=== PATIENT | female | born 1930 | race Caucasian/White ===

== ENCOUNTER 2016-04-30 18:03 | Inpatient (IN) | payer MEDICARE, BC ==
--- NOTE | 2016-04-30 18:29 | EDPRACDOC ---
- General Information Chief Complaint: Generalized Weakness Stated Complaint: STROKE Time Seen by Provider: 04/30/16 18:21 Home Medications: Home Medications Aspirin [Chewable Aspirin] 81 mg PO DAILY 09/15/12 Calcium Carbonate [Caltrate 600] 600 mg PO DAILY 09/15/12 Fish Oil/Dha/Epa [Fish Oil 1,200 mg Fish Oil] 1 cap PO DAILY 09/15/12 Hydrochlorothiazide 25 mg PO QAM 09/15/12 Losartan Potassium 100 mg PO DAILY 09/15/12 Allergies/Adverse Reactions: Allergies Allergy/AdvReac Type Severity Reaction Status Date / Time No Known Allergies Allergy Verified 09/15/12 14:58 - History of Present Illness Exact Onset of Symptoms: Known Date Symptoms Started: 04/30/16 Time Symptoms Started: 09:00 Symptoms Started: Reports: Suddenly Symptoms: Reports: Difficulty walking, Slurred speech Symptoms Description: Constant Symptom Severity: Reports: Does not affect activitiy Weakness: Right: Face Relevant History of: Denies: Anemia, CVA, DM, Electrolyte disorder, GI Bleed, [place] , TIA Associated signs and symptoms:: Denies: GI Bleed, Chest pain, Diarrhea, Fever, Headache, Nausea, Palpitations, Vomiting HPI: PT BROUGHT TO ED VIA EMS, EMS REPORTS STATED TO THEM THAT HE NOTICED PT BEING "OFF BALANCE" TODAY ABOUT 0900, STATES HER SPEECH HAS BEEN SLURRED AND THE RIGHT SIDE OF HER FACE WAS "DROOPING". PT DENIES COMPLAINTS, STATES SHE FEELS FINE, STATES SHE IS NOT HAVING ANY SPEECH DIFFICULTIES, DENIES FEELING WEAK ON RIGHT SIDE, STATES HER BALANCE HAS BEEN OFF BECAUSE SHE HAD A CORN REMOVED FROM HER TOE. ED Past Medical History - History Reviewed Yes Nurses notes reviewed and agree except as marked - Patient Medical History Cardiac History: Reports: Hypertension Musculoskeletal History: Reports: Arthritis Systemic History: Denies: Cancer Surgical History: Reports: Hysterectomy - Social Medical History Smoking Status: Never smoker ETOH: None Substance Abuse: None Lives With: Spouse Lives In: Home EDM Review of Systems - Review of Systems Constitutional: negative: Chills, Fever, Fatigue, Weakness Eyes: negative: Blurred Vision, Double Vision Ears: negative: Drainage Throat: negative: Pain Nose: negative: Congestion, Discharge Respiratory: negative: Cough, Shortness of Breath, Wheezing Cardiovascular: negative: Chest Pain, Palpitations Gastrointestinal: negative: Diarrhea, Nausea, Pain, Vomiting Genitourinary: negative: Dysuria, Frequency Neurological: Gait Difficulty, Speech Difficulty. negative: Dizziness, Headache , Numbness Musculoskeletal: No Symptoms Reported Integumentary: No Symptoms Reported - Physical Exam Constitutional: Alert (Awake), No apparent distress Oriented to: Time, Person, Place Last recorded Vital Signs: Oxygen Pulse Oxygen Saturation O2 Device Oxygen Flow Rate Fraction of Inspired Oxygen ( FIO2) - HEENT Head: Normal ( normocephalic) Eye Exam: Normal (PERRL, EOMI, Sclera white) Oropharynx: Normal (Pharynx:Moist without exudate,Gums-no swelling) Tympanic Membrane: Normal ENT EAC: Normal TMJ: Normal Nose: No Symptoms Reported (septum midline) Neck: Normal (FROM, trachea at midline) - Respiratory/Cardiovascular Respiratory: Normal - CTA (BBS clear to auscultation without adventitious sounds ) Cardiovascular: Normal (RRR without murmur, gallop or rub) - GI Auscultation: Normal (NABS) Palpation: Normal (Soft,No rebound or guarding, non distended) Tenderness: Non tender Casanova's Sign: Negative - Musculoskeletal Back: Normal (Non-Tender) Extremities: Normal (Normal tone, Pulses 2+ No cyanosis or edema, FROM) - Integumentary Skin: Normal, Warm, Dry Lymphatics: Normal (no adenopathy) - Neurologic Memory Impaired: Normal Motor Function: Normal (Normal tone, Pulses 2+ No cyanosis or edema, FROM) Cranial Nerve: Normal (CN II-X11 intact sensation, strength 5/5) Cerebellar: Normal Mood Description: Normal Perception: Normal NIH Stroke Scale Initial Evaluation Level of Consciousness: Alert LOC- Question: Answers Both Correctly LOC Commands: Both Task Correctly Best Gaze: Normal Visual: No Visual Loss Facial Palsy: Normal Movement Motor Arm LEFT: No Drift Motor Arm RIGHT: No Drift Motor Leg LEFT: No Drift Motor Leg RIGHT: No Drift Limb Ataxia: Absent Sensory: Normal Best Language: No Aphasia Dysarthria: Mild to Moderate Extinction and Inattention: No Abnormality (Neglect) Score: 1out of42 - Differential Diagnosis CVA, Mass lesion, SAH, TIA - Action Has patient received an Antithrombotic in the last 24hrs?: No Was an Antithrombotic given in the ED?: No Antithrombotic Contraindicated: Other *free text (SYMPTOMS MORE THAN 4 HOURS OLD ) Is patient a candidate for lytic therapy?: No Patient received TPA within 30 min of arrival?: No Reason IV Thrombolytics Contraindicated: Onset Undetermined - Re-evaluation Re-evaluation 1 Re-evaluation Time: 20:07 (NO CHANGE) - Results 04/30/16 18:55 04/30/16 18:55 04/30/16 20:02 Laboratory Results - last 24 hr 04/30/16 04/30/16 04/30/16 18:55 18:55 18:55 WBC 8.4 RBC 4.23 Hgb 12.6 Hct 37.1 MCV 88 MCH 29.7 MCHC 33.9 RDW 13.8 Plt Count 161 MPV 10.7 H Neut % (Auto) 66.9 Lymph % (Auto) 18.3 [place] % (Auto) 10.4 H Eos % (Auto) 2.6 Baso % (Auto) 1.8 Absolute Neuts (auto) 5.54 Absolute Lymphs (auto) 1.51 PT 10.6 INR 1.0 APTT 26.4 Sodium 136 L Potassium 3.2 L Chloride 96 L Carbon Dioxide 33 Anion Gap 10 BUN 17 Creatinine 0.90 Estimated GFR (MDRD) 60 Glucose 162 H Calculated Osmolality 268 L Calcium 9.2 Corrected Calcium 9.5 Total Bilirubin 0.7 AST 14 ALT 31 Alkaline Phosphatase 73 Troponin I < 0.01 Total Protein 6.6 Albumin 3.7 - EKG EKG #1 EKG Time: 18:27 -: Yes EKG interpreted by me Rate: bpm: 74 [place]: LAD Rhythm: NSR Block: None Hypertrophy: None ST: Nonsp Comments: NO OLD EKG FOR COMPARISON - Diagnostic Imaging CT HEAD Image interpreted by: Radiologist CT HEAD WITHOUT CONTRAST TECHNIQUE: Contiguous axial images were obtained from the base of the skull through the vertex without intravenous contrast. COMPARISON: CT of the head performed 09/28/2014 FINDINGS: There is no evidence of acute infarction, mass lesion, or intra- or extra-axial hemorrhage on CT. There is prominence of the supratentorial ventricles, out of proportion to the prominence of the sulci, though this is similar in appearance to the prior study and may simply reflect more prominent central volume loss. Would correlate for any evidence of chronic communicating hydrocephalus. Mild periventricular white matter change likely reflects small vessel ischemic microangiopathy. Small chronic lacunar infarcts are suggested within the basal ganglia. The brainstem and fourth ventricle are within normal limits. The cerebral hemispheres demonstrate grossly normal bates-white differentiation. No mass effect or midline shift is seen. There is no evidence of fracture; visualized osseous structures are unremarkable in appearance. The visualized portions of the orbits are within normal limits. A small mucus retention cyst or polyp is noted within the right maxillary sinus. The remaining paranasal sinuses and mastoid air cells are well-aerated. No significant soft tissue abnormalities are seen. IMPRESSION: 1. No acute intracranial pathology seen on CT. 2. Prominence of the supratentorial ventricles may simply reflect moderate cortical volume loss, as it appears stable from 2015, though would correlate for any evidence of chronic communicating hydrocephalus. 3. Mild small vessel ischemic microangiopathy. 4. Small chronic lacunar infarcts suggested within the basal ganglia. 5. Small mucus retention cyst or polyp within the right maxillary sinus. - Additional Information DISCUSSED WITH , HE STATES THAT HE NOTICED PT "DRAGGING" HER RIGHT FOOT THIS MORNING, PT HAS SUMA CONFUSED THROUGHOUT THE DAY, STATES THAT WHEN SHE COOKED SUPPER SHE GOT CHEESE ALL OVER THE COUNTER AND DID NOT COOK THE POTATOES PROPERLY WHICH IS VERY UNUSUAL FOR HER. STATES THAT PT'S SPEECH IS NOT CLEAR USUAL. DISCUSSED WITH DR PEREIRA, HE WILL DISCUSS WITH THE HOSPITALIST - Departure Final Diagnosis: Right sided weakness, Dysarthria Hypertension Qualifiers: Hypertension type: essential hypertension Qualified Code(s): I10 - Essential ( primary) hypertension Education/Counseling Given To: Patient, Family Member Education/Counseling Given Regarding: Diagnosis, Treatment, Prognosis, Follow Up Referrals: Mark Calderon MD [Primary Care Provider] - One Week
[2016-04-30] MEDS ORDERED: SODIUM CHLORIDE 0.9% 10 ML FLUSH FLUSH PRN (18:30)
[2016-04-30] MEDS ORDERED: ENALAPRILAT 1.25 MG/ML VIAL IV ONE (18:52)
--- NOTE | 2016-04-30 18:58 | DIRPT ---
CLINICAL DATA: Weakness, slurred speech and facial droop. EXAM: PORTABLE CHEST 1 VIEW COMPARISON: None. FINDINGS: Lung volumes are low bilaterally. There is focal elevation/ eventration of the left hemidiaphragm. The heart size is normal. No edema, pleural fluid or focal airspace disease identified. IMPRESSION: Low lung volumes with elevated left hemidiaphragm. Electronically Signed By: Mc Holder M.D. On: 04/30/2016 18:55
[2016-04-30 19:19] LABS: AUTOMATED BASOPHIL 1.8 % (0-2); AUTOMATED EOSINOPHIL 2.6 % (0-5); AUTOMATED LYMPH 18.3 % (17-44); AUTOMATED MONOCYTE 10.4 % (3-10); AUTOMATED NEUTROPHIL 66.9 % (45-76); MPV 10.7 fL (7.4-10.4)
--- NOTE | 2016-04-30 19:25 | DIRPT ---
CLINICAL DATA: Acute onset of altered mental status and slurred speech. Dragging right leg. Initial encounter. EXAM: CT HEAD WITHOUT CONTRAST TECHNIQUE: Contiguous axial images were obtained from the base of the skull through the vertex without intravenous contrast. COMPARISON: CT of the head performed 09/28/2014 FINDINGS: There is no evidence of acute infarction, mass lesion, or intra- or extra-axial hemorrhage on CT. There is prominence of the supratentorial ventricles, out of proportion to the prominence of the sulci, though this is similar in appearance to the prior study and may simply reflect more prominent central volume loss. Would correlate for any evidence of chronic communicating hydrocephalus. Mild periventricular white matter change likely reflects small vessel ischemic microangiopathy. Small chronic lacunar infarcts are suggested within the basal ganglia. The brainstem and fourth ventricle are within normal limits. The cerebral hemispheres demonstrate grossly normal bates-white differentiation. No mass effect or midline shift is seen. There is no evidence of fracture; visualized osseous structures are unremarkable in appearance. The visualized portions of the orbits are within normal limits. A small mucus retention cyst or polyp is noted within the right maxillary sinus. The remaining paranasal sinuses and mastoid air cells are well-aerated. No significant soft tissue abnormalities are seen. IMPRESSION: 1. No acute intracranial pathology seen on CT. 2. Prominence of the supratentorial ventricles may simply reflect moderate cortical volume loss, as it appears stable from 2014, though would correlate for any evidence of chronic communicating hydrocephalus. 3. Mild small vessel ischemic microangiopathy. 4. Small chronic lacunar infarcts suggested within the basal ganglia. 5. Small mucus retention cyst or polyp within the right maxillary sinus. Electronically Signed By: Musa Yanes M.D. On: 04/30/2016 19:22
[2016-04-30 19:28] LABS: BLOOD UREA NITROGEN 17 MG/DL (7-17); CALC CORRECTED 9.5 MG/DL (8.4-10.2); CALCIUM 9.2 MG/DL (8.4-10.2); CALCULATED OSMOLALITY 268 MOs/Kg (270-290); CHLORIDE 96 mEq/L (98-107); GLUCOSE 162 MG/DL (70-99); SODIUM LEVEL 136 mEq/L (137-146); TOTAL PROTEIN 6.6 G/DL (6.3-8.2)
[2016-04-30 19:35] LABS: PARTIAL THROMB. TIME 26.4 SEC (22-35)
[2016-04-30] MEDS ORDERED: ASPIRIN 300 MG SUPP PR ONE (20:14)
[2016-04-30] MEDS ORDERED: TEMAZEPAM 15 MG CAP PO PRN (20:49)
[2016-04-30] MEDS ORDERED: ONDANSETRON HCL 4 MG/2 ML VIAL IV PRN (20:49)
[2016-04-30] MEDS ORDERED: ACETAMINOPHEN 325 MG/TAB TABLET PO PRN (20:49)
[2016-04-30] MEDS ORDERED: SIMETHICONE 80 MG TAB PO PRN (20:49)
[2016-04-30] MEDS ORDERED: METOCLOPRAMIDE 10 MG/2 ML VIAL IV PRN (20:49)
[2016-04-30] MEDS ORDERED: DOCUSATE-SENNA CONCENTRATE TAB PO PRN (20:49)
[2016-04-30] MEDS ORDERED: ACETAMINOPHEN 650 MG SUPP PR PRN (20:49)
[2016-04-30] MEDS ORDERED: BENZONATATE 100 MG PERLES PO PRN (20:49)
[2016-04-30] MEDS ORDERED: METOPROLOL TARTRATE 50 MG TAB PO ONE (20:53)
[2016-04-30] MEDS ORDERED: METOPROLOL TARTRATE 50 MG TAB PO SCH (21:00)
[2016-04-30 21:13] LABS: LEUKOCYTES/URINE TRACE (NEGATIVE); NITRITE/URINE NEG (NEGATIVE); URINE OCCULT BLOOD NEG (NEG/TRACE)
[2016-04-30 21:19] LABS: RBC/URINE 0-2 (0-5)
[2016-04-30] MEDS: LABETALOL 20 MG/4 ML SYRINGE IV PRN (22:04)
[2016-04-30] MEDS ORDERED: Vaccine Screening Complete SCH (23:00)
[2016-04-30] MEDS ORDERED: ENOXAPARIN 40 MG/0.4 ML PFS SQ SCH (23:00)
--- NOTE | 2016-04-30 23:51 | HISTPHYS ---
- Chief Complaint SLURRED SPEECH - History of Present Illness Erika Yang is an 85 year old woman who lives at home with her spouse. Her called their daughters because he noted that she was mumbling and not speaking clearly, and when she tried to make dinner, she was grating some cheese and scattering it all over the kitchen. The patient did not notice anything was different. Even after the ambulance arrived, she did not know why they wanted her to come to the hospital. The patient's two daughters noted that her speech was very garbled, one side of her face was drooping and she was drooling out of the corner of her mouth. Her right arm was less coordinated than usual. these changes persisted upon arrival to the ED but began to resolve some time after her arrival. She had no apparent stroke on her uncontrasted CT of the head, and because her symptoms seem to have started at least 6 hours prior to arrival, no TPA was given. Her blood pressure on arrival was very high: 229/101. She has been treated with several medications since admission in attempts to bring it down. Her family says her blood pressure is only high when she goes to the doctor. She checks it at home and it is normal. Her report of normal was 165/35. "Or something like that." The patient is able to follow all commands and has no loss of strength at this time. Her only neurologic deficit at present is some nasolabial flattening on the right side of her face and some dysarthria/word-salad. - Medical History Cardiac History: Reports: Hypertension, Hypercholesterolemia Respiratory History: Reports: COPD GI/ History: Reports: Urinary Tract Infection (bladder prolapse) Musculoskeletal History: Reports: Arthritis Neurological History: Reports: Cerebrovascular Accident Psychological History: Denies: Depression - Surgical History Reports: Hysterectomy, Other (cataracts) - Medictions/Allergies Allergies No Known Allergies Allergy (Verified 09/15/12 14:58) Current Medication List: Reviewed Home Medications Aspirin [Chewable Aspirin] 81 mg PO DAILY 09/15/12 Calcium Carbonate [Caltrate 600] 600 mg PO DAILY 09/15/12 Fish Oil/Dha/Epa [Fish Oil 1,200 mg Fish Oil] 1 cap PO DAILY 09/15/12 Hydrochlorothiazide 25 mg PO QAM 09/15/12 Losartan Potassium 100 mg PO DAILY 09/15/12 - Family History Reports: Hypertension (Mom, Bro), Diabetes (Bro), Cancer (Bro-lymphoma), Stroke (puncle). Denies: Cardiac Disorders, Respiratory Disorders - Social History Travel Outside of [place] in the Last 3 Months?: No Lives: with Spouse Smoking Status: Never smoker Social History: Denies: Alcohol Use - Review of Systems Constitutional: No Symptoms Reported Eyes: Cataracts Ears: Hearing Loss Nose: No Symptoms Reported Mouth: Drooling (R- side) Throat/Neck: No Symptoms Reported Respiratory: Cough. negative: Shortness of Breath, Asthma Cardiovascular: negative: Chest Pain, Edema, Orthopnea, Palpitations Gastrointestinal: No Symptoms Reported. negative: Nausea, Vomiting, Abdominal Pain, Constipation, Heartburn Genitourinary: No Symptoms Reported, Postmenopause. negative: Dysuria, Frequency, Nocturia, Urgency to urinate Neurological: Speech Difficulty, Weakness, Memory Changes. negative: Dizziness , Gait Difficulty, Headache, Numbness Musculoskeletal:: No Symptoms Reported Integumentary: No Symptoms Reported Allergic/Immunologic: No Symptoms Reported Hematologic: No Symptoms Reported Endocrine: No Symptoms Reported. negative: Heat Intolerance, Cold Intolerance, Polyuria, Osteoporosis, Diabetes, Hypothyroidism Psychiatric: No Symptoms Reported. negative: Anxiety, Depression, Insomnia - Physical Exam Vital Signs: Initial Vitals Temperature 98.7 F 04/30/16 18:03 Pulse Rate 82 04/30/16 18:03 Respiratory Rate 16 04/30/16 18:03 Blood Pressure 229/101 H 04/30/16 18:03 Pulse Oxygen Saturation 97 04/30/16 18:03 Constitutional: No apparent distress, Alert, Confused Oriented to: Person, Place - HEENT Head: Other (mild Right sided nasolabial flattening) Eye: Normal (PERRL: EOMI) Oropharynx: Drooling ( Right sided nasolabial flattening). negative: Normal, Exudate, Red, Tonsillar Hypertrophy Tympanic Membrane: Normal ENT EAC: Cerumen Nose: No Symptoms Reported. negative: Bleeding, Congestion, Discharge, Deformity Respiratory: Normal - CTA. negative: Tachypnea Cardiovascular: Normal (regular rhythm and rate, no murmur) - GI Auscultation: Normal Palpation: Normal Tenderness: Non tender Casanova's Sign: Negative Rectal Exam: Deferred - Musculoskeletal Back: Normal Extremities: Normal Spine: non-tender, normal alignment, normal inspection - Integumentary Skin: Warm, Dry. negative: Rash Lymphatics: Normal - Neurologic Memory Impaired: Short-term Motor Function: Normal Cranial Nerve: 2 (EOMI), 3 (EOMI), 4 (EOMI), 5 (masseter muscle strong bilaterally,), 6 (EOMI), 7 (mild nasolabial flattening on right), 8 (no nystagmus), 9 (significant dysarthria), 10 (significant dysarthria), 11 (head turn/shoulder shrug - intact), 12 (significant dysarthria) Cerebellar: Normal Mood Description: Appropriate, Calm Thought: Coherent Perception: Normal - Focused CV Perfusion Exam Vital Signs: Last Vital Signs Temp 98.3 F 04/30/16 22:25 Pulse 67 04/30/16 23:20 Resp 18 04/30/16 22:25 BP 193/84 H 04/30/16 23:20 Pulse Ox 95 04/30/16 22:25 - Lab Results Laboratory Tests 04/30/16 04/30/16 04/30/16 18:55 18:55 18:55 WBC 8.4 Hgb 12.6 Hct 37.1 Plt Count 161 Neut % (Auto) 66.9 Lymph % (Auto) 18.3 [place] % (Auto) 10.4 H Eos % (Auto) 2.6 Baso % (Auto) 1.8 Absolute Neuts (auto) 5.54 Absolute Lymphs (auto) 1.51 PT 10.6 INR 1.0 APTT 26.4 Sodium 136 L Potassium 3.2 L Chloride 96 L Carbon Dioxide 33 Anion Gap 10 BUN 17 Creatinine 0.90 Estimated GFR (MDRD) 60 Glucose 162 H Calculated Osmolality 268 L Calcium 9.2 Corrected Calcium 9.5 Total Bilirubin 0.7 AST 14 ALT 31 Alkaline Phosphatase 73 Troponin I < 0.01 Total Protein 6.6 Albumin 3.7 TSH Urine Color Urine Clarity Urine pH Ur Specific [place] Urine Protein Urine Glucose (UA) Urine Ketones Urine Nitrite Urine RBC Urine WBC Urine Bacteria 04/30/16 04/30/16 04/30/16 18:55 20:47 21:00 WBC Hgb Hct Plt Count Neut % (Auto) Lymph % (Auto) [place] % (Auto) Eos % (Auto) Baso % (Auto) Absolute Neuts (auto) Absolute Lymphs (auto) PT INR APTT Sodium Potassium Chloride Carbon Dioxide Anion Gap BUN Creatinine Estimated GFR (MDRD) Glucose Calculated Osmolality Calcium Corrected Calcium Total Bilirubin AST ALT Alkaline Phosphatase Troponin I < 0.01 Total Protein Albumin TSH 1.14 Urine Color Yellow Urine Clarity Hazy Urine pH 5.0 Ur Specific [place] 1.010 Urine Protein Neg Urine Glucose (UA) Neg Urine Ketones Neg Urine Nitrite Neg Urine RBC 0-2 Urine WBC 10-20 H Urine Bacteria Few 05/01/16 00:45 WBC Hgb Hct Plt Count Neut % (Auto) Lymph % (Auto) [place] % (Auto) Eos % (Auto) Baso % (Auto) Absolute Neuts (auto) Absolute Lymphs (auto) PT INR APTT Sodium Potassium Chloride Carbon Dioxide Anion Gap BUN Creatinine Estimated GFR (MDRD) Glucose Calculated Osmolality Calcium Corrected Calcium Total Bilirubin AST ALT Alkaline Phosphatase Troponin I < 0.01 Total Protein Albumin TSH Urine Color Urine Clarity Urine pH Ur Specific [place] Urine Protein Urine Glucose (UA) Urine Ketones Urine Nitrite Urine RBC Urine WBC Urine Bacteria - Diagnostic Findings CT Head: IMPRESSION: 1. No acute intracranial pathology seen on CT. 2. Prominence of the supratentorial ventricles may simply reflect moderate cortical volume loss, as it appears stable from 2014, though would correlate for any evidence of chronic communicating hydrocephalus. 3. Mild small vessel ischemic microangiopathy. 4. Small chronic lacunar infarcts suggested within the basal ganglia. 5. Small mucus retention cyst or polyp within the right maxillary sinus. Electronically Signed By: Musa Yanes M.D. On: 04/30/2016 19:22 CXR: IMPRESSION: Low lung volumes with elevated left hemidiaphragm. Electronically Signed By: Mc Holder M.D. On: 04/30/2016 18:55 - Assessment (1) Acute CVA (cerebrovascular accident) I63.9 - CEREBRAL INFARCTION, UNSPECIFIED Acute Present on Admission: Yes Admit, begin stroke protocol. Patient's BP is extremely high. We do allow for permissive hypertension the first 48 hours, but with a goal to keep the SBP no more than 180. PO and IV medications have been written to provide adequate control. She will need to be on aspirin and a statin. (2) Hypertensive urgency, malignant I16.0 - HYPERTENSIVE URGENCY Acute Present on Admission: Yes Patient's BP is extremely high. We do allow for permissive hypertension the first 48 hours, but with a goal to keep the SBP no more than 180. PO and IV medications have been written to provide adequate control. (3) Right sided weakness M62.81 - MUSCLE WEAKNESS (GENERALIZED) Acute Present on Admission: Yes Consult PT/OT and anticipate rehabilitation needs. (4) Dysarthria R47.1 - DYSARTHRIA AND ANARTHRIA Acute Present on Admission: Yes Speech therapy to be consulted for speech and swallowing assessments. Case Care Discussed with: Patient, Family, Nursing Staff Total Time: 65 min Critical Care: Yes [place] Time (>50% in counseling/coordination): Yes Code: 291
[2016-05-01] MEDS ORDERED: HEPARIN 5000 UNITS/ML VIAL IV ONE (05:30)
[2016-05-01 05:35] LABS: LDL (calc.) 111.8 MG/DL (<100); VLDL (calc.) 14.2 MG/DL (5-40)
[2016-05-01] MEDS: HEPARIN 500 ML IV SCH ×2 (05:44→19:04)
--- NOTE | 2016-05-01 08:03 | DIRPT ---
CLINICAL DATA: Altered mental status. Slurred speech. Left leg weakness. EXAM: BILATERAL CAROTID DUPLEX ULTRASOUND TECHNIQUE: Tavares scale imaging, color Doppler and duplex ultrasound were performed of bilateral carotid and vertebral arteries in the neck. COMPARISON: None. FINDINGS: Criteria: Quantification of carotid stenosis is based on velocity parameters that correlate the residual internal carotid diameter with NASCET-based stenosis levels, using the diameter of the distal internal carotid lumen as the denominator for stenosis measurement. The following velocity measurements were obtained: RIGHT ICA: 110 cm/sec CCA: 63 cm/sec SYSTOLIC ICA/CCA RATIO: 1.8 DIASTOLIC ICA/CCA RATIO: 1.7 ECA: 100 cm/sec LEFT ICA: Occluded cm/sec CCA: 64 cm/sec SYSTOLIC ICA/CCA RATIO: Not applicable DIASTOLIC ICA/CCA RATIO: Not applicable ECA: 109 cm/sec RIGHT CAROTID ARTERY: Mild calcified plaque in the right bulb with some intimal thickening. Low resistance internal carotid Doppler pattern. RIGHT VERTEBRAL ARTERY: Antegrade. Normal Doppler pattern. LEFT CAROTID ARTERY: Extensive calcified plaque in the bulb. The internal carotid artery is occluded by Doppler imaging above the bulb. LEFT VERTEBRAL ARTERY: Antegrade. Low resistance Doppler pattern. 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 Less than 50% stenosis in the right internal carotid artery. Electronically Signed By: Harjit Johnson M.D. On: 05/01/2016 08:00
[2016-05-01] MEDS ORDERED: METOCLOPRAMIDE 10 MG/2 ML VIAL IV PRN (08:55)
[2016-05-01] MEDS ORDERED: CALCIUM CARBONATE 600 MG PO SCH (09:00)
[2016-05-01] MEDS ORDERED: EPA PO SCH (09:00)
[2016-05-01] MEDS ORDERED: Non-Formulary Medication ITEM (Losartan Potassium [Losartan Potassium] 100 MG) PO SCH (09:00)
[2016-05-01] MEDS ORDERED: DHA PO SCH (09:00)
[2016-05-01] MEDS ORDERED: FISH OIL PO SCH (09:00)
[2016-05-01] MEDS ORDERED: Medication Hold Instructions SCH ×2 (10:00→11:00)
--- NOTE | 2016-05-01 11:15 | DIRPT ---
CLINICAL DATA: Acute right facial droop and slurred speech. Altered mental status for 1 day. Abnormal carotid Doppler study. EXAM: MRI HEAD WITHOUT CONTRAST MRA NECK WITHOUT AND WITH CONTRAST TECHNIQUE: Multiplanar, multiecho pulse sequences of the brain and surrounding structures were obtained without and with intravenous contrast. Angiographic images of the neck were obtained using MRA technique with and without intravenous contrast. Carotid stenosis measurements (when applicable) are obtained utilizing NASCET criteria, using the distal internal carotid diameter as the denominator. CONTRAST: 12 mL MultiHance COMPARISON: CT head without contrast 04/30/2016. Carotid Doppler ultrasound 04/30/2016. FINDINGS: MRI HEAD FINDINGS Multiple foci of restricted diffusion are present within the left MCA territory. These are evident throughout the centrum semi ovale and anterior left frontal lobe. There is a focal punctate infarct in the left caudate head and another an the left insular cortex. T2 changes are associated with the areas of acute/ subacute infarction. A remote white matter infarct is present in the right centrum semiovale without hemorrhage. Multiple remote lacunar infarcts and extensive periventricular and subcortical white matter changes are present bilaterally. White matter changes extend into the brainstem. There multiple remote lacunar infarcts of the cerebellum. Areas of focal susceptibility are noted in the inferior right cerebellum and adjacent to the fourth ventricle on the right. Moderate generalized atrophy is present. The left internal carotid artery is occluded at the skullbase. It is reconstituted at the level of the left ophthalmic artery. The left vertebral artery is also occluded. The basilar artery is patent. The right internal carotid artery is patent. Bilateral lens replacements are present. The globes and orbits are otherwise intact. A polyp or mucous retention cyst is noted anteriorly in the right maxillary sinus. The remaining paranasal sinuses are clear. The postcontrast images demonstrate no pathologic enhancement. 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 There is antegrade flow in the vertebral arteries bilaterally. The postcontrast images demonstrate a 3 vessel arch configuration. Both vertebral arteries originate from subclavian arteries. Moderate stenosis is present in the proximal left vertebral artery measuring 50- 70% relative to the more distal vessel. There is mild irregularity throughout the left vertebral artery without a second significant stenosis in the neck. There is a moderate stenosis of the left vertebral artery just be on the PICA origin and occlusion proximal to the vertebrobasilar junction. Mild narrowing of less than 50% is present at the proximal dominant right vertebral artery without other significant stenosis. The right common carotid artery is within normal limits. Atherosclerotic changes are present within the proximal right internal carotid artery and just proximal to skullbase without a significant stenosis. The left common carotid artery is within normal limits. There is a 50% stenosis of the proximal left external carotid artery at the bifurcation. The left internal carotid artery is occluded. IMPRESSION: 1. Multiple acute/subacute infarctions within the left MCA territory. These are mostly scattered white matter infarcts with minimal cortical involvement. 2. Remote right-sided white matter infarcts within the right centrum semiovale. 3. Moderate periventricular and subcortical white matter change bilaterally extends into the brainstem. 4. Remote lacunar infarcts of the basal ganglia and cerebellum bilaterally. 5. The left internal carotid artery is occluded at the bifurcation. 6. Atherosclerotic changes of the proximal left external carotid artery and at the right carotid bifurcation without other focal stenoses. 7. Moderate stenosis of the proximal left vertebral artery. 8. Moderate stenosis of the left vertebral artery just beyond the PICA with occlusion of the distal left vertebral artery just proximal to the vertebrobasilar junction. Electronically Signed By: Amandeep Magaña M.D. On: 05/01/2016 11:12
[2016-05-01] MEDS: ASPIRIN (CHEWABLE) 81 MG TAB PO SCH (11:35)
[2016-05-01] MEDS: CALCIUM CARBONATE 500 MG TAB PO SCH (11:38)
[2016-05-01] MEDS: LOSARTAN POTASSIUM 50 MG TAB PO SCH (11:39)
[2016-05-01] MEDS: METOPROLOL TARTRATE 100 MG TAB PO SCH ×2 (11:41→22:37)
[2016-05-01] MEDS: OMEGA-3-ACID ETHYL ESTERS 1000 MG CAP PO SCH (11:41)
--- NOTE | 2016-05-01 12:55 | GENMEDPROG ---
Chief Complaint: Speech is slightly better today. Still with difficulties with word finding and word salad at times. Denies significant right-sided weakness. 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 left internal carotid artery Notes Reviewed: Yes Events from last night noted and discussed with Clinical Staff Current Medication List: Reviewed Currently: Denies: Cough, Wheezing, ROMO, SOB, Sputum, Constipation, Diarrhea, Nausea and Vomiting, Abdominal Pain - Physical Examination Vital Signs and I&O: Last Vital Signs Temp 97.7 F 05/01/16 11:50 Pulse 68 05/01/16 12:00 Resp 16 05/01/16 11:50 BP 160/58 L 05/01/16 11:50 Pulse Ox 95 05/01/16 11:50 Oxygen Pulse Oxygen Saturation 95 O2 Device Room Air Oxygen Flow Rate Fraction of Inspired Oxygen ( FIO2) Intake & Output 04/28/16 04/29/16 04/30/16 05/01/16 23:59 23:59 23:59 23:59 Intake Total 205 Output Total 250 Balance -45 Patient's weight 59.874 kg 59.738 kg General: Alert, Oriented x3, Cooperative, No acute distress, Well appearing, Well nourished HEENT: PERRLA, EOMI, Anicteric Sclera. negative: Normal, Other (Right-sided facial droop appeared speech thick but intelligible) Neck: Non-tender, Full range of motion, Normal Trachea alignment, Normal inspection. negative: JVD Lymphatics: Normal Respiratory: Normal - CTA. negative: Tachypnea Cardiovascular: Regular rate and rhythm, No Gallops,Rubs/Murmurs GI: Normal bowel sounds, Soft, Non tender, No hepatospenomegaly Extremities/Musculoskeletal: Normal pulses. negative: Tenderness, Swelling Skin: Warm,Dry and Intact, No rashes, No breakdown, No significant lesion Neurological: Strength at 5/5 X4 ext, Normal tone, Cranial nerves 3-12 NL. negative: Normal speech (Speech thick but mostly intelligible. Some difficulties with word finding and word salad at times but overall improved) Psych/Mental Status: Appropriate, Normal Affect, Cooperative Lab/DI/Studies Reviewed: Laboratory Results - last 24 hr 04/30/16 04/30/16 04/30/16 18:55 18:55 18:55 WBC 8.4 RBC 4.23 Hgb 12.6 Hct 37.1 MCV 88 MCH 29.7 MCHC 33.9 RDW 13.8 Plt Count 161 MPV 10.7 H Neut % (Auto) 66.9 Lymph % (Auto) 18.3 [place] % (Auto) 10.4 H Eos % (Auto) 2.6 Baso % (Auto) 1.8 Absolute Neuts (auto) 5.54 Absolute Lymphs (auto) 1.51 ESR PT 10.6 INR 1.0 APTT 26.4 Sodium 136 L Potassium 3.2 L Chloride 96 L Carbon Dioxide 33 Anion Gap 10 BUN 17 Creatinine 0.90 Estimated GFR (MDRD) 60 Glucose 162 H Calculated Osmolality 268 L Calcium 9.2 Corrected Calcium 9.5 Total Bilirubin 0.7 AST 14 ALT 31 Alkaline Phosphatase 73 Troponin I < 0.01 Total Protein 6.6 Albumin 3.7 Triglycerides Cholesterol LDL Cholesterol, Calc VLDL Cholesterol, Calc HDL Cholesterol Cholesterol/HDL Ratio TSH Urine Color Urine Clarity Urine pH Ur Specific [place] Urine Protein Urine Glucose (UA) Urine Ketones Urine Occult Blood Urine Nitrite Urine Bilirubin Urine Urobilinogen Ur Leukocyte Esterase Urine RBC Urine WBC Ur Epithelial Cells Urine Bacteria Hyaline Casts Urine Mucus RPR 04/30/16 04/30/16 04/30/16 18:55 18:55 20:47 WBC RBC Hgb Hct MCV MCH MCHC RDW Plt Count MPV Neut % (Auto) Lymph % (Auto) [place] % (Auto) Eos % (Auto) Baso % (Auto) Absolute Neuts (auto) Absolute Lymphs (auto) ESR 8 PT INR APTT Sodium Potassium Chloride Carbon Dioxide Anion Gap BUN Creatinine Estimated GFR (MDRD) Glucose Calculated Osmolality Calcium Corrected Calcium Total Bilirubin AST ALT Alkaline Phosphatase Troponin I Total Protein Albumin Triglycerides Cholesterol LDL Cholesterol, Calc VLDL Cholesterol, Calc HDL Cholesterol Cholesterol/HDL Ratio TSH 1.14 Urine Color Yellow Urine Clarity Hazy Urine pH 5.0 Ur Specific [place] 1.010 Urine Protein Neg Urine Glucose (UA) Neg Urine Ketones Neg Urine Occult Blood Neg Urine Nitrite Neg Urine Bilirubin Neg Urine Urobilinogen 0.2 Ur Leukocyte Esterase Trace Urine RBC 0-2 Urine WBC 10-20 H Ur Epithelial Cells 2+ Urine Bacteria Few Hyaline Casts 0-2 Urine Mucus Occ RPR 04/30/16 04/30/16 05/01/16 21:00 21:00 00:45 WBC RBC Hgb Hct MCV MCH MCHC RDW Plt Count MPV Neut % (Auto) Lymph % (Auto) [place] % (Auto) Eos % (Auto) Baso % (Auto) Absolute Neuts (auto) Absolute Lymphs (auto) ESR PT INR APTT Sodium Potassium Chloride Carbon Dioxide Anion Gap BUN Creatinine Estimated GFR (MDRD) Glucose Calculated Osmolality Calcium Corrected Calcium Total Bilirubin AST ALT Alkaline Phosphatase Troponin I < 0.01 < 0.01 Total Protein Albumin Triglycerides Cholesterol LDL Cholesterol, Calc VLDL Cholesterol, Calc HDL Cholesterol Cholesterol/HDL Ratio TSH Urine Color Urine Clarity Urine pH Ur Specific [place] Urine Protein Urine Glucose (UA) Urine Ketones Urine Occult Blood Urine Nitrite Urine Bilirubin Urine Urobilinogen Ur Leukocyte Esterase Urine RBC Urine WBC Ur Epithelial Cells Urine Bacteria Hyaline Casts Urine Mucus RPR Nonreactive 05/01/16 04:25 WBC RBC Hgb Hct MCV MCH MCHC RDW Plt Count MPV Neut % (Auto) Lymph % (Auto) [place] % (Auto) Eos % (Auto) Baso % (Auto) Absolute Neuts (auto) Absolute Lymphs (auto) ESR PT INR APTT Sodium Potassium Chloride Carbon Dioxide Anion Gap BUN Creatinine Estimated GFR (MDRD) Glucose Calculated Osmolality Calcium Corrected Calcium Total Bilirubin AST ALT Alkaline Phosphatase Troponin I Total Protein Albumin Triglycerides 71 Cholesterol 188 LDL Cholesterol, Calc 111.8 H VLDL Cholesterol, Calc 14.2 HDL Cholesterol 62.0 Cholesterol/HDL Ratio 3.0 TSH Urine Color Urine Clarity Urine pH Ur Specific [place] Urine Protein Urine Glucose (UA) Urine Ketones Urine Occult Blood Urine Nitrite Urine Bilirubin Urine Urobilinogen Ur Leukocyte Esterase Urine RBC Urine WBC Ur Epithelial Cells Urine Bacteria Hyaline Casts Urine Mucus RPR - Assessment (1) Acute CVA (cerebrovascular accident) Acute I63.9 - CEREBRAL INFARCTION, UNSPECIFIED Comment/Plan: MRI confirms left MCA territory stroke. Change aspirin to Plavix. Continue statin. Monitor blood pressures. She does have significant left carotid artery disease however as it is 100% occluded this is not amenable to intervention at this time. Physical therapy, speech therapy, occupational therapy evaluations. (2) Carotid artery disease Acute I77.9 - DISORDER OF ARTERIES AND ARTERIOLES, UNSPECIFIED Qualifiers: Laterality: left Qualified Code(s): I77.9 - Disorder of arteries and arterioles, unspecified Comment/Plan: 100% occluded left internal carotid artery. Discussed with Dr. Stearns with vascular surgery at [facility]. Also discussed with Dr. Wharton from Neurology. At this point medical therapy only is recommended (3) Dysarthria Acute R47.1 - DYSARTHRIA AND ANARTHRIA Comment/Plan: Speech therapy to be consulted for speech and swallowing assessments. (4) Hypertension Acute I10 - ESSENTIAL (PRIMARY) HYPERTENSION Qualifiers: Hypertension type: essential hypertension Qualified Code(s): I10 - Essential (primary) hypertension Comment/Plan: Allowing permissive hypertension. Titrate medications over the next 1-2 days as needed but suspect blood pressures will trend down as she recovers (5) Hyperlipidemia Acute E78.5 - HYPERLIPIDEMIA, UNSPECIFIED Qualifiers: Hyperlipidemia type: unspecified Qualified Code(s): E78.5 - Hyperlipidemia , unspecified Comment/Plan: Continue statin (6) Right sided weakness Acute M62.81 - MUSCLE WEAKNESS (GENERALIZED) Comment/Plan: Minimal currently. Appears to have improved significantly. Case Care Discussed with: Patient, Consultants (Discussed with Dr. Stearns from vascular surgery at [facility] and Dr. Wharton from Neurology.), Family (Met with family on 2 separate occasions. Discussed findings and prognosis at length.) Total Time: additional time 1 hour today. Multiple discussions with family and specialists
--- NOTE | 2016-05-01 15:00 | CAPUECHO ---
INDICATION: ISCHEMIC STROKE HEIGHT: 162.6 cm (5 ft 4.0 in) WEIGHT: 62.1 kg (137.0 lbs) BP: 150/75 BSA: 1.728268 m MEASUREMENTS 2D LA Diam: 3.6 cm EF Biplane: 63.86 % LAESV MOD A4C: 43.9 ml LAESV MOD A2C: 50.6 ml LAESV Index (A-L): 30.83 ml/m M-MODE IVSd: 1.2 cm LVIDd: 4.7 cm LVPWd: 1.2 cm LVIDs: 3.4 cm EF(Teich): 55 % DOPPLER MV E Josh: 0.64 m/s MV A Josh: 0.98 m/s MV PHT: 65.97 ms MVA By PHT: 3.34 cm LVOT Vmax: 1.02 m/s AV Vmax: 1.22 m/s TR Vmax: 2.70 m/s TR maxP mmHg RVSP: 39.20 mmHg FINDINGS ------- Procedure:2D images, m-mode, color and spectral Doppler were obtained and reviewed. ECG rhythm:Sinus rhythm. Study quality:This was a technically adequate study. Left Ventricle:The left ventricular size is normal. There is mild concentric left ventricular hype rtrophy. There is normal global left ventricular contractility. Overall left ventricular systoli c function is normal with, an EF between 55 - 60 %. The diastolic filling pattern indicates impair ed relaxation. No regional wall motion abnormalities were noted. Right Ventricle:The right ventricle is normal in size and function. Left Atrium:Left atrium is mildly dilated by volume. Right Atrium:The right atrium is normal in size and function. ASD/VSD:Interatrial and interventricular septum intact. Aortic Valve:The aortic valve is trileaflet and appears structurally normal. There is mild aortic valve sclerosis. There is no evidence of aortic regurgitation. There is no evidence of aortic st enosis. Mitral Valve:Normal appearing mitral valve. Mild mitral regurgitation is present. Tricuspid Valve:The tricuspid valve appears structurally normal. Mild tricuspid regurgitation pres ent. The right ventricular systolic pressure, as measured by Doppler, is 39 mmhg}. Pulmonic Valve:The pulmonic valve is normal. Trace/mild (physiologic) pulmonic regurgitation. Aorta:The aortic root, ascending aorta and aortic arch appear normal. IVC:Normal inferior vena cava with normal inspiratory collapse. Pericardium:The pericardium is normal. There is no pericardial effusion. CONCLUSIONS 1. Sinus rhythm. 2. There is normal global left ventricular contractility. 3. Left atrium is mildly dilated by volume. 4. Interatrial and interventricular septum intact. Electronically Signed By: Silas Morelos MD, [facility] Electronically Signed On: 14:58:19
--- NOTE | 2016-05-01 20:42 | DIRPT ---
CLINICAL DATA: Altered mental status, aphasia, right arm paralysis. EXAM: CT HEAD WITHOUT CONTRAST TECHNIQUE: Contiguous axial images were obtained from the base of the skull through the vertex without intravenous contrast. COMPARISON: CT scan of April 30, 2016. FINDINGS: Bony calvarium appears intact. Mild chronic ischemic white matter disease is noted. Stable mild ventricular dilatation is noted. Minimal diffuse cortical atrophy is noted. Old right lacunar infarction is noted. There is no evidence of mass lesion, hemorrhage or acute infarction. IMPRESSION: Minimal diffuse cortical atrophy. Mild chronic ischemic white matter disease. Stable mild ventricular dilatation compared to prior exam. No acute intracranial abnormality seen. These results were called by telephone at the time of interpretation on 05/01/2016 at 8:[address] PRSAAD DOWNEY MD, who verbally acknowledged these results. Electronically Signed By: Wallace Ko Jr, M.D. On: 05/01/2016 20:39
[2016-05-01] MEDS: ATORVASTATIN 20 MG TAB PO SCH (22:37)
[2016-05-02] MEDS: ENALAPRILAT 1.25 MG/ML VIAL IV PRN ×2 (04:32→12:26)
[2016-05-02] MEDS: HEPARIN 500 ML IV SCH ×2 (06:19→17:18)
[2016-05-02 06:39] LABS: AUTOMATED BASOPHIL 1.4 % (0-2); AUTOMATED LYMPH 24.9 % (17-44); AUTOMATED MONOCYTE 11.1 % (3-10); AUTOMATED NEUTROPHIL 60.6 % (45-76); MPV 11.1 fL (7.4-10.4)
[2016-05-02] MEDS: ASPIRIN (CHEWABLE) 81 MG TAB PO SCH (07:51)
[2016-05-02] MEDS: LOSARTAN POTASSIUM 50 MG TAB PO SCH (07:51)
[2016-05-02] MEDS: METOPROLOL TARTRATE 100 MG TAB PO SCH ×2 (07:51→22:35)
[2016-05-02] MEDS: OMEGA-3-ACID ETHYL ESTERS 1000 MG CAP PO SCH (11:29)
[2016-05-02] MEDS: NS/KCl 20 mEq 1,000 ML IV SCH ×2 (12:26→23:45)
[2016-05-02] MEDS: CALCIUM CARBONATE 500 MG TAB PO SCH (12:27)
--- NOTE | 2016-05-02 13:59 | GENMEDPROG ---
Chief Complaint: Difficult night. More pronounced expressive aphasia. Now lethargic and sleeping more. Repeat head CT shows no evidence of bleeding. Have asked Neurology to see in consultation. Notes Reviewed: Yes Events from last night noted and discussed with Clinical Staff Current Medication List: Reviewed Currently: Denies: Cough, Wheezing, ROMO, SOB, Sputum, Constipation, Diarrhea, Nausea and Vomiting, Abdominal Pain DVT Prophylaxis: Yes - Physical Examination Vital Signs and I&O: Last Vital Signs Temp 98.2 F 05/02/16 11:27 Pulse 65 05/02/16 12:00 Resp 18 05/02/16 11:27 BP 208/91 H 05/02/16 11:27 Pulse Ox 95 05/02/16 11:27 Oxygen Pulse Oxygen Saturation 95 O2 Device Room Air Oxygen Flow Rate Fraction of Inspired Oxygen ( FIO2) Intake & Output 04/29/16 04/30/16 05/01/16 05/02/16 23:59 23:59 23:59 23:59 Intake Total 650 270 Output Total 250 Balance 400 270 Patient's weight 59.874 kg 59.738 kg 58.876 kg General: Alert, Oriented x3, Cooperative, No acute distress, Well appearing, Well nourished HEENT: PERRLA, EOMI, Anicteric Sclera. negative: Normal, Other (Right-sided facial droop appeared speech thick but intelligible) Neck: Non-tender, Full range of motion, Normal Trachea alignment, Normal inspection. negative: JVD Lymphatics: Normal Respiratory: Normal - CTA. negative: Tachypnea Cardiovascular: Regular rate and rhythm, No Gallops,Rubs/Murmurs GI: Normal bowel sounds, Soft, Non tender, No hepatospenomegaly Extremities/Musculoskeletal: Normal pulses. negative: Tenderness, Swelling Skin: Warm,Dry and Intact, No rashes, No breakdown, No significant lesion Neurological: Strength at 5/5 X4 ext, Normal tone, Cranial nerves 3-12 NL. negative: Normal speech (Speech thick but mostly intelligible. Some difficulties with word finding and word salad at times but overall improved) Psych/Mental Status: Appropriate, Normal Affect, Cooperative Lab/DI/Studies Reviewed: Laboratory Results - last 24 hr 05/01/16 05/02/16 05/02/16 17:20 00:25 06:10 WBC RBC Hgb Hct MCV MCH MCHC RDW Plt Count MPV Neut % (Auto) Lymph % (Auto) [place] % (Auto) Eos % (Auto) Baso % (Auto) Absolute Neuts (auto) Absolute Lymphs (auto) APTT 40.2 H 47.8 H 39.8 H Magnesium 05/02/16 05/02/16 06:10 13:00 WBC 10.2 RBC 4.45 Hgb 13.2 Hct 39.9 MCV 90 MCH 29.8 MCHC 33.2 RDW 13.6 Plt Count 126 L MPV 11.1 H Neut % (Auto) 60.6 Lymph % (Auto) 24.9 [place] % (Auto) 11.1 H Eos % (Auto) 2.0 Baso % (Auto) 1.4 Absolute Neuts (auto) 6.12 Absolute Lymphs (auto) 2.45 APTT Magnesium 1.90 - Assessment (1) Acute CVA (cerebrovascular accident) Acute I63.9 - CEREBRAL INFARCTION, UNSPECIFIED Comment/Plan: Expressive aphasia is worse today. Now completely nonverbal. Repeat head CT shows no evidence of bleed. MRI had confirmed a left MCA stroke. Continue current medications and care. Neurology to see in consultation. (2) Carotid artery disease Acute I77.9 - DISORDER OF ARTERIES AND ARTERIOLES, UNSPECIFIED Qualifiers: Laterality: left Qualified Code(s): I77.9 - Disorder of arteries and arterioles, unspecified Comment/Plan: 100% occluded left internal carotid artery. Discussed with Dr. Stearns with vascular surgery at [facility]. Also discussed with Dr. Wharton from Neurology. At this point medical therapy only is recommended (3) Dysarthria Acute R47.1 - DYSARTHRIA AND ANARTHRIA Comment/Plan: Worse today. Continue speech therapy evaluations. If persists may need to seek alternative means of nutrition (4) Hypertension Acute I10 - ESSENTIAL (PRIMARY) HYPERTENSION Qualifiers: Hypertension type: essential hypertension Qualified Code(s): I10 - Essential (primary) hypertension Comment/Plan: Blood pressures remain somewhat elevated. P.r.n. IV hydralazine. P.o. medications as tolerated (5) Hyperlipidemia Acute E78.5 - HYPERLIPIDEMIA, UNSPECIFIED Qualifiers: Hyperlipidemia type: unspecified Qualified Code(s): E78.5 - Hyperlipidemia , unspecified Comment/Plan: Continue statin (6) Right sided weakness Acute M62.81 - MUSCLE WEAKNESS (GENERALIZED) Comment/Plan: This does appear better. Case Care Discussed with: Patient, Consultants, Family, Nursing Staff, Physical Therapy, Resource Management, Respiratory Therapy, Chronic Manager
--- NOTE | 2016-05-02 17:53 | PCM.NEUCO ---
Consultation Date: 05/02/16 Requesting Physician: Mark Ko Consulting Doctor: Bradford Wharton Reason For Consult: Stroke/TIA Pt with HTN and hyperlipidemia and borderline DM developed confusion and clumsiness on the right noted at 9 AM morning before last. They eventually decided to come to the ED and admitted for stroke although there was none seen on CT. Her symptoms were stable yesterday but MRI/MRA and carotids showed multiple strokes in the left MCA distribution and occlusion of the left ICA at the skull base and occlusion of the left vertebral artery proximal to the basilar junction. Last night she had a change with marked worsening of her speech and flaccid paralysis of her right side suggesting completion of her stroke. Both vascular surgery and we discussed her care yesterday and recommended medical treatment rather than intervention. She was on aspirin and had started a statin a couple of months ago. No atrial fibrillation has been noted. She is working with PT, ST and OT and is taking thickened liquids now. She is able to say a few words and follows simple commands most of the time. - Past Medical and Surgical History Cardiac History: Reports: Hypertension, Hypercholesterolemia Respiratory History: Reports: COPD GI/ History: Reports: Urinary Tract Infection (bladder prolapse) Systemic History: Reports: Diabetes (borderline). Denies: Cancer Musculoskeletal History: Reports: Arthritis Psychological History: Denies: Depression, Alcoholism, Substance Use Disorder Neurological History: Reports: Cerebrovascular Accident Past Surgical History: Reports: Hysterectomy, Other (cataracts) Allergies No Known Allergies Allergy (Verified 09/15/12 14:58) Home Medications Aspirin [Chewable Aspirin] 81 mg PO DAILY 09/15/12 Calcium Carbonate [Caltrate 600] 600 mg PO DAILY 09/15/12 Fish Oil/Dha/Epa [Fish Oil 1,200 mg Fish Oil] 1 cap PO DAILY 09/15/12 Hydrochlorothiazide 25 mg PO QAM 09/15/12 Losartan Potassium 100 mg PO DAILY 09/15/12 - Social History Travel Outside of [place] in the Last 3 Months?: No Lives: with Spouse ( 65 years) Smoking Status: Never smoker Social History: Denies: Alcohol Use, Substance Use Disorder - Family History Reports: Hypertension (Mom, Bro), Diabetes (Bro), Cancer (Bro-lymphoma), Stroke (puncle). Denies: Cardiac Disorders, Respiratory Disorders - Review of Systems Yes Review of systems cannot be obtained due to the patient's medical condition (unable to speak) - Physical Exam Vital Signs: Initial Vitals Temperature 98.7 F 04/30/16 18:03 Pulse Rate 82 04/30/16 18:03 Respiratory Rate 16 04/30/16 18:03 Blood Pressure 229/101 H 04/30/16 18:03 Pulse Oxygen Saturation 97 04/30/16 18:03 Constitutional: Alert, Restless Oriented to: Unable to Test - HEENT Head: Normal Eye: Normal Oropharynx: Normal TMJ: Normal Nose: negative: Abrasion Pupils 4mm-3mm bilaterally. right facial droop, tongue midline, decreased sensation right side of face, right side neglect but VF intact. Able to speak only a few words but seems to understand most speech. Respiratory: negative: Accessory Muscle Use Cardiovascular: Normal - GI Tenderness: Non tender Rectal Exam: Deferred - Exam Deferred: Yes - Musculoskeletal Back: negative: Abrasion Extremities: Normal Spine: non-tender - Integumentary Skin: Warm, Dry - Mental Status Orientation: Unable to Test Speech: Dysarthria, Blocking Coginitive: Follows Commands Motor Function: Abnormal (left side 5/5 strength. right side 0/5 strength) Affect: Appropriate Thought: Other (unable to determine) - Sensory Sensory: Sev to Total Sensory Loss Sensory: Right Upper Extremity - Reflex Reflexes: Absent 0: Right Bicep, Left Bicep, Left Tricep, Right Tricep, Left Brachioradialis, Right Brachioradialis, Left Patellar, Right Patellar, Left Achilles, Right Achilles - Coordination Finger to Nose Test: Activity Impossible (on the right) Heel on Reeder Test: Activity Impossible (on the right) - Diagnostic Findings BILATERAL CAROTID DUPLEX ULTRASOUND TECHNIQUE: Tavares scale imaging, color Doppler and duplex ultrasound were performed of bilateral carotid and vertebral arteries in the neck. COMPARISON: None. FINDINGS: Criteria: Quantification of carotid stenosis is based on velocity parameters that correlate the residual internal carotid diameter with NASCET-based stenosis levels, using the diameter of the distal internal carotid lumen as the denominator for stenosis measurement. The following velocity measurements were obtained: RIGHT ICA: 110 cm/sec CCA: 63 cm/sec SYSTOLIC ICA/CCA RATIO: 1.8 DIASTOLIC ICA/CCA RATIO: 1.7 ECA: 100 cm/sec LEFT ICA: Occluded cm/sec CCA: 64 cm/sec SYSTOLIC ICA/CCA RATIO: Not applicable DIASTOLIC ICA/CCA RATIO: Not applicable ECA: 109 cm/sec RIGHT CAROTID ARTERY: Mild calcified plaque in the right bulb with some intimal thickening. Low resistance internal carotid Doppler pattern. RIGHT VERTEBRAL ARTERY: Antegrade. Normal Doppler pattern. LEFT CAROTID ARTERY: Extensive calcified plaque in the bulb. The internal carotid artery is occluded by Doppler imaging above the bulb. LEFT VERTEBRAL ARTERY: Antegrade. Low resistance Doppler pattern. 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 Less than 50% stenosis in the right internal carotid artery. MRI HEAD WITHOUT CONTRAST MRA NECK WITHOUT AND WITH CONTRAST TECHNIQUE: Multiplanar, multiecho pulse sequences of the brain and surrounding structures were obtained without and with intravenous contrast. Angiographic images of the neck were obtained using MRA technique with and without intravenous contrast. Carotid stenosis measurements (when applicable) are obtained utilizing NASCET criteria, using the distal internal carotid diameter as the denominator. CONTRAST: 12 mL MultiHance COMPARISON: CT head without contrast 04/30/2016. Carotid Doppler ultrasound 04/30/2016. FINDINGS: MRI HEAD FINDINGS Multiple foci of restricted diffusion are present within the left MCA territory. These are evident throughout the centrum semi ovale and anterior left frontal lobe. There is a focal punctate infarct in the left caudate head and another an the left insular cortex. T2 changes are associated with the areas of acute/ subacute infarction. A remote white matter infarct is present in the right centrum semiovale without hemorrhage. Multiple remote lacunar infarcts and extensive periventricular and subcortical white matter changes are present bilaterally. White matter changes extend into the brainstem. There multiple remote lacunar infarcts of the cerebellum. Areas of focal susceptibility are noted in the inferior right cerebellum and adjacent to the fourth ventricle on the right. Moderate generalized atrophy is present. The left internal carotid artery is occluded at the skullbase. It is reconstituted at the level of the left ophthalmic artery. The left vertebral artery is also occluded. The basilar artery is patent. The right internal carotid artery is patent. Bilateral lens replacements are present. The globes and orbits are otherwise intact. A polyp or mucous retention cyst is noted anteriorly in the right maxillary sinus. The remaining paranasal sinuses are clear. The postcontrast images demonstrate no pathologic enhancement. 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 There is antegrade flow in the vertebral arteries bilaterally. The postcontrast images demonstrate a 3 vessel arch configuration. Both vertebral arteries originate from subclavian arteries. Moderate stenosis is present in the proximal left vertebral artery measuring 50- 70% relative to the more distal vessel. There is mild irregularity throughout the left vertebral artery without a second significant stenosis in the neck. There is a moderate stenosis of the left vertebral artery just be on the PICA origin and occlusion proximal to the vertebrobasilar junction. Mild narrowing of less than 50% is present at the proximal dominant right vertebral artery without other significant stenosis. The right common carotid artery is within normal limits. Atherosclerotic changes are present within the proximal right internal carotid artery and just proximal to skullbase without a significant stenosis. The left common carotid artery is within normal limits. There is a 50% stenosis of the proximal left external carotid artery at the bifurcation. The left internal carotid artery is occluded. IMPRESSION: 1. Multiple acute/subacute infarctions within the left MCA territory. These are mostly scattered white matter infarcts with minimal cortical involvement. 2. Remote right-sided white matter infarcts within the right centrum semiovale. 3. Moderate periventricular and subcortical white matter change bilaterally extends into the brainstem. 4. Remote lacunar infarcts of the basal ganglia and cerebellum bilaterally. 5. The left internal carotid artery is occluded at the bifurcation. 6. Atherosclerotic changes of the proximal left external carotid artery and at the right carotid bifurcation without other focal stenoses. 7. Moderate stenosis of the proximal left vertebral artery. 8. Moderate stenosis of the left vertebral artery just beyond the PICA with occlusion of the distal left vertebral artery just proximal to the vertebrobasilar junction. - Assessment/Plan (1) Acute CVA (cerebrovascular accident) I63.9 - CEREBRAL INFARCTION, UNSPECIFIED Acute Present on Admission: Yes Comment: 85 yowf with acute left MCA stroke from left ICA and left vertebral occlusion. Pt had stepwise course with completion of the stroke last night. The occlusions are not amenable to intervention, therefore recommend medical treatment with Plavix, statin and BP control. Pt would be a good candidate for rehab but family considerations may preclude going to for rehab. Will stop the heparin drip. PT, ST, OT. Had a long discussion with family tonight and answered questions. Plan: 1. Plavix 2. STatin 3. ACEI 4. Rehab or NH with PT 5. PT, ST, OT.
[2016-05-02] MEDS: ATORVASTATIN 20 MG TAB PO SCH (20:42)
[2016-05-03] MEDS: KCl 10 mEq/100 ml Premix (Run) 10 MEQ/100 ML RTU IV SCH ×6 (00:44→05:53)
[2016-05-03] MEDS: Magnesium Sulfate 2 gm/D5W 2 GM/50 ML RTU IV SCH ×2 (00:51→04:45)
[2016-05-03] MEDS: METOPROLOL TARTRATE 100 MG TAB PO SCH (08:17)
[2016-05-03] MEDS: LOSARTAN POTASSIUM 50 MG TAB PO SCH (08:18)
[2016-05-03] MEDS: ASPIRIN (CHEWABLE) 81 MG TAB PO SCH (08:19)
[2016-05-03] MEDS: OMEGA-3-ACID ETHYL ESTERS 1000 MG CAP PO SCH (12:14)
[2016-05-03] MEDS: CALCIUM CARBONATE 500 MG TAB PO SCH (12:24)
[2016-05-03] MEDS: NS/KCl 20 mEq 1,000 ML IV SCH (12:25)
--- NOTE | 2016-05-03 13:02 | GENMEDPROG ---
Chief Complaint: More alert and more stable appearing today. Still with near complete expressive aphasia. Notes Reviewed: Yes Events from last night noted and discussed with Clinical Staff Current Medication List: Reviewed Currently: Denies: Cough, Wheezing, ROMO, SOB, Sputum, Constipation, Diarrhea, Nausea and Vomiting, Abdominal Pain DVT Prophylaxis: Yes - Physical Examination Vital Signs and I&O: Last Vital Signs Temp 98.1 F 05/03/16 11:10 Pulse 57 L 05/03/16 11:10 Resp 18 05/03/16 11:10 BP 158/74 05/03/16 11:10 Pulse Ox 95 05/03/16 11:10 Oxygen Pulse Oxygen Saturation 95 O2 Device Room Air Oxygen Flow Rate Fraction of Inspired Oxygen ( FIO2) Intake & Output 04/30/16 05/01/16 05/02/16 05/03/16 23:59 23:59 23:59 23:59 Intake Total 650 1291 1208 Output Total 250 50 Balance 400 1291 1158 Patient's weight 59.874 kg 59.738 kg 58.876 kg 59.647 kg General: Alert, Cooperative, Well appearing, Well nourished HEENT: Normal, PERRLA, EOMI Neck: Non-tender, Full range of motion, Normal Trachea alignment. negative: JVD Lymphatics: Normal. negative: Adenopathy Respiratory: negative: Accessory Muscle Use Cardiovascular: Regular rate and rhythm, No Gallops,Rubs/Murmurs GI: Normal bowel sounds, Soft, Non tender, No hepatospenomegaly, No masses Extremities/Musculoskeletal: Normal pulses. negative: Tenderness, Swelling, Edema Skin: Warm,Dry and Intact, No rashes, No breakdown, No significant lesion Neurological: Other (Complete expressive aphasia currently. Nonverbal. Some right upper extremity weakness. However appears more alert and interactive. No evidence of receptive aphasia at this time). negative: Normal speech Psych/Mental Status: Appropriate, Cooperative Lab/DI/Studies Reviewed: Laboratory Results - last 24 hr 04/30/16 05/02/16 05/02/16 21:00 13:00 14:22 APTT 46.0 H Potassium Magnesium 1.90 Homocysteine 18.2 H ALEXANDRO Titer Negative 05/02/16 23:45 APTT Potassium 3.2 L Magnesium 1.50 L Homocysteine ALEXANDRO Titer - Assessment (1) Acute CVA (cerebrovascular accident) Acute I63.9 - CEREBRAL INFARCTION, UNSPECIFIED Comment/Plan: Unfortunately had completion of her stroke yesterday. Now with total expressive aphasia. However she is more alert and interactive and following commands. Significant improvement in cognition noted. Continue current care. Appreciate Neurology evaluation. Likely will need [facility] facility placement and a couple of days once she is more stable (2) Carotid artery disease Acute I77.9 - DISORDER OF ARTERIES AND ARTERIOLES, UNSPECIFIED Qualifiers: Laterality: left Qualified Code(s): I77.9 - Disorder of arteries and arterioles, unspecified Comment/Plan: 100% occluded left internal carotid artery. Discussed with Dr. Stearns with vascular surgery at [facility]. Also discussed with Dr. Wharton from Neurology. At this point medical therapy only is recommended (3) Dysarthria Acute R47.1 - DYSARTHRIA AND ANARTHRIA Comment/Plan: Total expressive aphasia currently. She is nonverbal. Continue speech therapy and supportive care (4) Hypertension Acute I10 - ESSENTIAL (PRIMARY) HYPERTENSION Qualifiers: Hypertension type: essential hypertension Qualified Code(s): I10 - Essential (primary) hypertension Comment/Plan: Blood pressures remain somewhat elevated. P.r.n. IV hydralazine. P.o. medications as tolerated (5) Hyperlipidemia Acute E78.5 - HYPERLIPIDEMIA, UNSPECIFIED Qualifiers: Hyperlipidemia type: unspecified Qualified Code(s): E78.5 - Hyperlipidemia , unspecified Comment/Plan: Continue statin (6) Right sided weakness Acute M62.81 - MUSCLE WEAKNESS (GENERALIZED) Comment/Plan: This does appear better. Case Care Discussed with: Patient, Family, Physical Therapy, Resource Management , Speech Therapy, Center Specialists
[2016-05-03] MEDS: CLOPIDOGREL 75 MG TAB PO SCH (14:12)
[2016-05-03 15:17] VITALS: TEMP 97.8
[2016-05-03] MEDS: ATORVASTATIN 20 MG TAB PO SCH (20:15)
[2016-05-03] MEDS: METOPROLOL TARTRATE 50 MG TAB PO SCH (20:15)
[2016-05-04] MEDS: NS/KCl 20 mEq 1,000 ML IV SCH ×4 (00:22→14:01)
[2016-05-04 03:49] LABS: AUTOMATED BASOPHIL 1.2 % (0-2); AUTOMATED EOSINOPHIL 1.9 % (0-5); AUTOMATED LYMPH 21.5 % (17-44); AUTOMATED MONOCYTE 11.4 % (3-10); MPV 11.7 fL (7.4-10.4)
[2016-05-04 04:02] LABS: BLOOD UREA NITROGEN 11 MG/DL (7-17); CALCIUM 8.4 MG/DL (8.4-10.2); CALCULATED OSMOLALITY 257 MOs/Kg (270-290); CHLORIDE 101 mEq/L (98-107); GLUCOSE 133 MG/DL (70-99); SODIUM LEVEL 133 mEq/L (137-146)
[2016-05-04 04:33] VITALS: BMI 22.9
[2016-05-04] MEDS: ENALAPRILAT 1.25 MG/ML VIAL IV PRN (04:38)
[2016-05-04] MEDS: METOPROLOL TARTRATE 50 MG TAB PO SCH ×2 (08:39→21:40)
[2016-05-04] MEDS: CLOPIDOGREL 75 MG TAB PO SCH (08:39)
[2016-05-04] MEDS: OMEGA-3-ACID ETHYL ESTERS 1000 MG CAP PO SCH (08:40)
[2016-05-04] MEDS: LOSARTAN POTASSIUM 50 MG TAB PO SCH (08:40)
[2016-05-04] MEDS: CALCIUM CARBONATE 500 MG TAB PO SCH (08:40)
--- NOTE | 2016-05-04 10:16 | GENMEDPROG ---
Currently: Denies: Cough, Wheezing, ROMO, SOB, Sputum, Constipation, Diarrhea, Nausea and Vomiting, Abdominal Pain DVT Prophylaxis: Yes - Physical Examination Vital Signs and I&O: Last Vital Signs Temp 98.2 F 05/04/16 07:40 Pulse 62 05/04/16 08:51 Resp 18 05/04/16 07:40 BP 170/84 05/04/16 07:40 Pulse Ox 92 05/04/16 07:40 Oxygen Pulse Oxygen Saturation 92 O2 Device Room Air Oxygen Flow Rate Fraction of Inspired Oxygen ( FIO2) Intake & Output 05/01/16 05/02/16 05/03/16 05/04/16 23:59 23:59 23:59 23:59 Intake Total 650 1291 1428 1116 Output Total 250 50 Balance 400 1291 1378 1116 Patient's weight 59.738 kg 58.876 kg 59.647 kg 60.691 kg General: Alert, Cooperative, Well appearing, Well nourished HEENT: Normal, PERRLA, EOMI, Mucous membr. moist/pink, Other (mild facial asymmetry, w/ N-L flattening on right) Neck: Non-tender, Full range of motion, Normal Trachea alignment. negative: JVD Lymphatics: Normal. negative: Adenopathy Respiratory: Normal - CTA. negative: Accessory Muscle Use Cardiovascular: Regular rate and rhythm, No Gallops,Rubs/Murmurs GI: Normal bowel sounds, Soft, Non tender, No hepatospenomegaly, No masses Extremities/Musculoskeletal: Normal pulses, DJD, FROM. negative: Tenderness, Swelling, Edema Skin: Warm,Dry and Intact, No rashes, No breakdown, No significant lesion Neurological: Normal tone, Cranial nerves 3-12 NL, Cranial Nerves (N-L flattening on right), Strength (weakness in RLE, RUE), Gait Unsteady, Other ( Complete expressive aphasia currently. Nonverbal. Some right upper extremity weakness. However appears more alert and interactive. No evidence of receptive aphasia at this time, also RLE weakness.). negative: Normal speech Psych/Mental Status: Appropriate, Normal Affect, Cooperative, Other (aphasic) Lab/DI/Studies Reviewed: Laboratory Tests 05/04/16 05/04/16 02:30 02:30 WBC 10.7 Hgb 11.5 L D Hct 33.4 L Plt Count 122 L Neut % (Auto) 64.0 Lymph % (Auto) 21.5 [place] % (Auto) 11.4 H Eos % (Auto) 1.9 Sodium 133 L Potassium 3.9 Chloride 101 Carbon Dioxide 27 Anion Gap 9 BUN 11 Creatinine 0.80 Estimated GFR (MDRD) > 60 Glucose 133 H Calculated Osmolality 257 L Calcium 8.4 - Assessment (1) Acute CVA (cerebrovascular accident) Acute I63.9 - CEREBRAL INFARCTION, UNSPECIFIED Comment/Plan: Unfortunately had completion of her stroke. Now with total expressive aphasia, RUE & RLE weakness. However she is more alert and interactive and following commands. Significant improvement in cognition noted. Continue current care. Appreciate Neurology evaluation. Likely will need [facility] facility placement in a couple of days once she is more stable (2) Hypertensive urgency, malignant Acute I16.0 - HYPERTENSIVE URGENCY Comment/Plan: Patient's BP is currently 178/86. We do allow for permissive hypertension the first 48 hours, but with a goal to keep the SBP no more than 180. PO and IV medications have been written to provide adequate control. (3) Right sided weakness Acute M62.81 - MUSCLE WEAKNESS (GENERALIZED) Comment/Plan: This does appear better. Has some truncal instability as well as limb weakness. Continue with PT/OT. (4) Dysarthria Acute R47.1 - DYSARTHRIA AND ANARTHRIA Comment/Plan: Total expressive aphasia currently. She is nonverbal. Continue speech therapy and supportive care
[2016-05-04] MEDS: ATORVASTATIN 20 MG TAB PO SCH (21:40)
[2016-05-04] MEDS: LABETALOL 20 MG/4 ML SYRINGE IV PRN (23:42)
[2016-05-05] MEDS: NS/KCl 20 mEq 1,000 ML IV SCH ×2 (01:37→01:38)
[2016-05-05] MEDS: LABETALOL 20 MG/4 ML SYRINGE IV PRN (03:57)
[2016-05-05] MEDS: ENALAPRILAT 1.25 MG/ML VIAL IV PRN (05:57)
[2016-05-05 08:07] VITALS: BP 178/88; PULSE 66; TEMP 98.4
[2016-05-05] MEDS: LOSARTAN POTASSIUM 50 MG TAB PO SCH (08:28)
[2016-05-05] MEDS: CALCIUM CARBONATE 500 MG TAB PO SCH (08:29)
[2016-05-05] MEDS: CLOPIDOGREL 75 MG TAB PO SCH (08:29)
[2016-05-05] MEDS: OMEGA-3-ACID ETHYL ESTERS 1000 MG CAP PO SCH (08:29)
[2016-05-05] MEDS: METOPROLOL TARTRATE 50 MG TAB PO SCH (08:29)
--- NOTE | 2016-05-05 10:46 | PCM.DCS92 ---
- Final/Secondary Discharge Diagnosis (1) Acute CVA (cerebrovascular accident) Acute I63.9 - CEREBRAL INFARCTION, UNSPECIFIED Present on Admission: Yes Comment: Unfortunately had completion of her stroke. Now with total expressive aphasia, RUE & RLE weakness. However she is more alert and interactive and following commands. Significant improvement in cognition noted. Continue current care. Appreciate Neurology evaluation. Likely will need correction facility placement in a couple of days once she is more stable (2) Hypertensive urgency, malignant Acute I16.0 - HYPERTENSIVE URGENCY Present on Admission: Yes Comment: Patient's BP is currently 178/86. We do allow for permissive hypertension the first 48 hours, but with a goal to keep the SBP no more than 180. PO and IV medications have been written to provide adequate control. (3) Right sided weakness Acute M62.81 - MUSCLE WEAKNESS (GENERALIZED) Present on Admission: Yes Comment: This does appear better. Has some truncal instability as well as limb weakness. Continue with PT/OT. (4) Dysarthria Acute R47.1 - DYSARTHRIA AND ANARTHRIA Present on Admission: Yes Comment: Total expressive aphasia currently. She is nonverbal. Continue speech therapy and supportive care (5) Dysphagia Acute R13.10 - DYSPHAGIA, UNSPECIFIED Present on Admission: Yes oropharyngeal phase R13.12 - Dysphagia, oropharyngeal phase Comment: Due to acute CVA- continue aspiration precautions. [place] thick liqids , no straws, chin tuck, small bites/sips of food. Soft diet, ground meats. Family aware she remains at high risk of aspiration. (6) Hyperlipidemia Acute E78.5 - HYPERLIPIDEMIA, UNSPECIFIED Present on Admission: Yes unspecified E78.5 - Hyperlipidemia, unspecified Comment: Continue statin Discharge Disposition: [facility] Discharge Condition: Improved Cognitive Discharge Status: Unable to communicate needs Fuctional Discharge Status: Walker Assistance, Fall Risk, Inability to drive due to severe medical illness, Ambulatory Dysfunction, Unable to leave home without assistance Physician Follow up/Referrals: Mark Calderon MD [Primary Care Provider] - One Week Home Medications / New Prescriptions: New Acetaminophen Tablet [TYLENOL Tablet] 650 mg PO Q6H PRN #60 tablet PRN Reason: Mild Pain Or Fever Above 100.4 Atorvastatin Calcium [Lipitor] 20 mg PO HS #30 tablet Clopidogrel Bisulfate [Plavix] 75 mg PO DAILY #30 tablet Docusate-Senna Concentrate [Senokot S or Karly Colace] 1 tab PO BID PRN #60 tablet PRN Reason: Constipation - First Option Metoprolol Tartrate [Lopressor] 50 mg PO BID #60 tablet Continue Losartan Potassium 100 mg PO DAILY Calcium Carbonate [Caltrate 600] 600 mg PO DAILY Hydrochlorothiazide 25 mg PO QAM Fish Oil/Dha/Epa [Fish Oil 1,200 mg Fish Oil] 1 cap PO DAILY Aspirin [Aspirin, Chewable] 81 mg PO DAILY Discharge Home Medication List Aspirin [Aspirin, Chewable] 81 mg PO DAILY 09/15/12 [History Confirmed 04/30/16 Last Taken 04/30/16] Calcium Carbonate [Caltrate 600] 600 mg PO DAILY 09/15/12 [History Confirmed Last Taken 04/30/16] Fish Oil/Dha/Epa [Fish Oil 1,200 mg Fish Oil] 1 cap PO DAILY 09/15/12 [History Confirmed 04/30/16 Last Taken 04/30/16] Hydrochlorothiazide 25 mg PO QAM 09/15/12 [History Confirmed 04/30/16 Last Taken 04/30/16] Losartan Potassium 100 mg PO DAILY 09/15/12 [History Confirmed 04/30/16 Last Taken 04/30/16] Acetaminophen Tablet [TYLENOL Tablet] 650 mg PO Q6H PRN #60 tablet 05/05/16 [Rx Last Taken Unknown] Atorvastatin Calcium [Lipitor] 20 mg PO HS #30 tablet 05/05/16 [Rx Last Taken Unknown] Clopidogrel Bisulfate [Plavix] 75 mg PO DAILY #30 tablet 05/05/16 [Rx Last Taken Unknown] Docusate-Senna Concentrate [Senokot S or Karly Colace] 1 tab PO BID PRN #60 tablet 05/05/16 [Rx Last Taken Unknown] Metoprolol Tartrate [Lopressor] 50 mg PO BID #60 tablet 05/05/16 [Rx Last Taken Unknown] O2 Device: Room Air Diet at Discharge: Heart Healthy, Low Salt Activity: As Tolerated, No Driving Call Office For: Worsening Symptoms, Fever over 101 F Discontinue use of:: Alcohol, All Illegal Substances, All Types of Tobacco - DC Summary Notes Hospital Course Note:: Discharge summary on patient named VINICIUS YANG admitted to [facility] on 04/30/16 by Brooke Hobson MD. Date of discharge is []. Vinicius Yang is an 85 year old woman who lives at home with her spouse. Her called their daughters because he noted that she was mumbling and not speaking clearly, and when she tried to make dinner, she was grating some cheese and scattering it all over the kitchen. The patient did not notice anything was different. Even after the ambulance arrived, she did not know why they wanted her to come to the hospital. The patient's two daughters noted that her speech was very garbled, one side of her face was drooping and she was drooling out of the corner of her mouth. Her right arm was less coordinated than usual. these changes persisted upon arrival to the ED but began to resolve some time after her arrival. She had no apparent stroke on her uncontrasted CT of the head, and because her symptoms seem to have started at least 6 hours prior to arrival, no TPA was given. Her blood pressure on arrival was very high: 229/101. She has been treated with several medications since admission in attempts to bring it down. Her family says her blood pressure is only high when she goes to the doctor. She checks it at home and it is normal. Her report of normal was 165/35. "Or something like that." The patient is able to follow all commands and has no loss of strength at this time. Her only neurologic deficit at present is some nasolabial flattening on the right side of her face and some dysarthria/word-salad. Unfortunately after admission,the patient had completion of her stroke. Now she has total expressive aphasia, RUE & RLE weakness. However she is more alert and interactive and following commands. Significant improvement in cognition noted. Continue current care. Appreciate Neurology evaluation. She will likely will need correction facility placement. Due to acute CVA- continue aspiration precautions. She has significant dysphagia. She will need [place] thick liquids, no straws, chin tuck, small bites/sips of food. Soft diet , ground meats. Family is aware that she remains at high risk of aspiration. she will be discharged to a correction facility today for rehabilitation. Follow-up will be with Dr. Marques Calderon. Total Time: 45 min Code: 46610 (>30min.) - Physical Exam Vital Signs: Last Vital Signs Temp 98.4 F 05/05/16 07:59 Pulse 66 05/05/16 07:59 Resp 19 05/05/16 07:59 BP 178/88 05/05/16 07:59 Pulse Ox 93 05/05/16 07:59 Oxygen Pulse Oxygen Saturation 93 O2 Device Room Air Oxygen Flow Rate Fraction of Inspired Oxygen ( FIO2) Constitutional: No apparent distress, Alert Oriented to: Unable to Test - HEENT Head: Normal Eye: Normal Oropharynx: Normal Tympanic Membrane: Normal ENT EAC: Normal TMJ: Normal Nose: negative: Abrasion - Respiratory/Cardiovascular Respiratory: Normal - CTA. negative: Accessory Muscle Use Cardiovascular: Normal - GI Auscultation: Normal Palpation: Normal Tenderness: Non tender Rectal Exam: Deferred - Musculoskeletal Back: negative: Abrasion Extremities: Normal - Integumentary Skin: Warm, Dry Lymphatics: Normal. negative: Adenopathy - Neurologic Memory Impaired: Unable to Test Motor Function: Abnormal (weakness on right side face and arm, some in leg (but less)) Cranial Nerve: 2 (EOMI), 3 (EOMI), 4 (EOMI), 5 (good masseter strength), 6 (EOMI ), 7 (naso-labial flattening on R), 8 (no nystagmus on lateral gaze), 9 (speech and swallow are dysarthric), 10 (speech and swallow are dysarthric), 11 (head turn and shoulder shrug are normal), 12 (tongue deviates to left, no fasciculations) Cerebellar: Ataxia Mood Description: Appropriate Thought: Other (unable to determine- patient will follow commands) Perception: Other (unable to determine- patient will follow commands)
[2016-05-05] MEDS ORDERED: VARIBAR NECTAR 40% BARIUM 240 ML ONE (11:16)
[2016-05-05] MEDS ORDERED: VARIBAR HONEY 40% BARIUM 250 ML ONE (11:16)
[2016-05-05] MEDS ORDERED: VARIBAR THIN 40% BARIUM 250 ML ONE (11:16)
== END 2016-05-05 14:22 | DRG 65 ==
LOC: ED 18:03 → PCU 20:49
PROVIDERS: ADMIT Family Medicine; ATTEND Family Medicine
DX: I63.9 Cerebral infarction, unspecified (principal); G81.91 Hemiplegia, unspecified affecting right dominant side; J44.9 Chronic obstructive pulmonary disease, unspecified; I16.0 Hypertensive urgency; R47.01 Aphasia; R13.10 Dysphagia, unspecified; R47.1 Dysarthria and anarthria; I77.9 Disorder of arteries and arterioles, unspecified; E78.5 Hyperlipidemia, unspecified; R73.03 Prediabetes; Z86.73 Personal history of transient ischemic attack (TIA), and cerebral infarction without residual deficits; Z79.82 Long term (current) use of aspirin; Z79.899 Other long term (current) drug therapy
CPT/HCPCS: 36415; 70450; 70549; 70553; 71010; 80048; 80053; 80061; 81001; 83090; 83735; 84132; 84443; 84484; 85025; 85610; 85651; 85730; 86038; 86592; 93005; 93306; 93880; 96372; 96374; 97162; 97165; 99284; A9577; J1644; J1650; J3475; J3480; J3490; J7040